=== PATIENT | female | born 1990 | race Caucasian/White ===

== ENCOUNTER 2020-07-12 20:13 | Emergency (ER) | payer BC ==
[2020-07-12] MEDS ORDERED: Lidocaine 1% (PF) 30 ML VIAL ONE (20:20)
[2020-07-12] MEDS ORDERED: TETANUS AND DIPHTHERIA TOX/PF 0.5 ML DISP.SYRIN ONE (20:20)
[2020-07-12] MEDS ORDERED: Ibuprofen 800 MG TAB ONE (20:54)
== END 2020-07-12 20:56 | disposition home or self-care (01) ==
LOC: NAV ERS 20:13
DX: S61.012A Laceration without foreign body of left thumb without damage to nail, initial encounter (principal); E03.9 Hypothyroidism, unspecified; Z79.899 Other long term (current) drug therapy; W26.0XXA Contact with knife, initial encounter
CPT/HCPCS: 12001; 90471; 90714; J2001